=== PATIENT | female | born 1990 ===

== ENCOUNTER → 2017-07-24 | Outpatient (CLI) | payer MEDICAID | LOC: SUN.DIA 09:42 | DX: O24.419 Gestational diabetes mellitus in pregnancy, unspecified control (principal); Z3A.30 30 weeks gestation of pregnancy; Z71.3 Dietary counseling and surveillance | CPT/HCPCS: G0108 ==

== ENCOUNTER → 2017-08-07 | Outpatient (CLI) | payer MEDICAID | LOC: SUN.DIA 10:09 | DX: O24.414 Gestational diabetes mellitus in pregnancy, insulin controlled (principal); Z3A.32 32 weeks gestation of pregnancy; Z71.3 Dietary counseling and surveillance | CPT/HCPCS: G0108 ==

== ENCOUNTER 2017-10-02 04:36 | Inpatient (IN) | payer MEDICAID ==
[2017-10-02] VITALS (21 sets, daily range): BP systolic 95–144; BP diastolic 49–86; PULSE 64–88; TEMP 98–98.6
[~2017-10-02] VITALS: Ht 152.5 cm; Wt 78.6 kg
[2017-10-02] MEDS ORDERED: HUMALOG100 U/ML SQ (05:33)
[2017-10-02] MEDS ORDERED: PRENATAL1 TA7 PO (05:36)
[2017-10-02 06:11] LABS: BASO % 0.3 % (0.0-2.0); EOS # 0.1 (0.0-0.7); EOS % 0.8 % (0-4.0); GRAN # 5.7 (1.4-6.5); GRAN % 62.3 % (42.2-75.2); LYMPH # 2.5 (1.2-3.4); LYMPH % 27.5 % (20.0-51.0); MEAN CELL VOLUME 85 fl (80.0-100.0); MEAN CORPUSCULAR HGB CONC 33 g/dl (33.0-37.0); MEAN PLATELET VOLUME 11.8 fl (7.4-10.4); MONO # 0.7 (0.1-0.6); MONO % 7.9 % (1.7-9.3); PLATELET COUNT 237 K/mm3 (130-400); RED BLOOD COUNT 4.22 M/mm3 (4.10-5.30); REDCELL DISTRIBUTION WIDTH-CV 15.2 % (11.5-14.5)
[2017-10-02 06:14] LABS: HEMATOCRIT 35.9 % (37.0-47.0); HEMOGLOBIN 11.8 g/dl (12.5-16.0); MEAN CORPUSCULAR HEMOGLOBIN 28 pg (27.0-31.0)
[2017-10-03] VITALS (13 sets, daily range): BP systolic 99–143; BP diastolic 53–77; PULSE 56–75; TEMP 97.8–98.8
[2017-10-03 07:01] LABS: HEMOGLOBIN 7.3 g/dl (12.5-16.0)
[2017-10-04 08:15] VITALS: BP 127/72; PULSE 75; TEMP 98.6
[2017-10-04] MEDS ORDERED: PERCOCET 325 MG1 TA2 PO (08:51)
[2017-10-04] MEDS ORDERED: IBU600 MG PO (08:51)
[2017-10-04 09:12] LABS: HEMATOCRIT 29.1 % (37.0-47.0); HEMOGLOBIN 9.6 g/dl (12.5-16.0)
[2017-10-04 14:40] VITALS: BP 145/78; PULSE 68; TEMP 97.6
== END 2017-10-04 18:16 | disposition home or self-care (01) | DRG 765 ==
LOC: LDR 04:36 → OB 04:36 → LDR 04:54 → OB 07:08 → LDR 09:35 → OB 10-04 18:16
PROVIDERS: Obstetrics & Gynecology
PROC: 10D00Z1 Extraction of Products of Conception, Low, Open Approach (ICD-10-PCS; principal; 2017-10-02)
DX: O34.211 Maternal care for low transverse scar from previous cesarean delivery (principal); N85.8 Other specified noninflammatory disorders of uterus; D62 Acute posthemorrhagic anemia; O99.02 Anemia complicating childbirth; O24.420 Gestational diabetes mellitus in childbirth, diet controlled; Z3A.39 39 weeks gestation of pregnancy; Z37.0 Single live birth
CPT/HCPCS: J0171; J0690; J1885; J2175; J2370; J2405; J2590; J3010; J7120; P9016